=== PATIENT | male | born 1965 | race Caucasian/White ===

== ENCOUNTER 2018-09-18 12:37 | Emergency (ER) | payer BC ==
[2018-09-18 13:26] VITALS: BP 112/68
--- NOTE | 2018-09-18 13:40 | UC ---
General HPI - HPI Summary HPI Summary: last pm while walking, pt felt and heard a sudden "pop" in his L knee. it sounded like a bone cracked. he had immediate pain and now has swelling as well. - History of Current Complaint Chief Complaint: UCLowerExtremity Stated Complaint: LT KNEE INJURY Time Seen by Provider: 09/18/18 13:20 Hx Obtained From: Patient Onset/Duration: Sudden Onset Timing: Constant Pain Intensity: 9 Aggravating: walking - Allergy/Home Medications Allergies/Adverse Reactions: Allergies Allergy/AdvReac Type Severity Reaction Status Date / Time No Known Allergies Allergy Verified 09/18/18 13:24 Home Medications: Home Medications Ibuprofen TAB* [Advil TAB*] 800 mg PO Q6H PRN 09/18/18 [History Confirmed ] PMH/Surg Hx/FS Hx/Imm Hx Previously Healthy: Yes - Surgical History Surgical History: Yes Surgery Procedure, Year, and Place: L ankle surgery for "dying bone" - Family History Known Family History: Positive: Non-Contributory - Social History Occupation: Employed Full-time - [employer] Lives: With Family Alcohol Use: Daily Alcohol Amount: 2 beers Substance Use Type: None Smoking Status (MU): Heavy Every Day Tobacco Smoker Type: Cigarettes Amount Used/How Often: 1 PPD Review of Systems All Other Systems Reviewed And Are Negative: No Constitutional: Negative: Fever Skin: Negative: Rash Musculoskeletal: Positive: Edema - L knee. Negative: Calf Tenderness, Decreased ROM Physical Exam Triage Information Reviewed: Yes Appearance: Well-Appearing Vital Signs: Initial Vital Signs Temp 98.8 F 09/18/18 13:21 Pulse 82 09/18/18 13:21 Resp 17 09/18/18 13:21 BP 112/68 09/18/18 13:21 Pulse Ox 98 09/18/18 13:21 Vital Signs Reviewed: Yes Eyes: Positive: Conjunctiva Clear Respiratory: Positive: No respiratory distress Cardiovascular: Positive: RRR Musculoskeletal: Positive: Other: - LLE: non tender varicose veins. hip is non tender. knee is swollen and tender to medial joint line and posterior knee. no joint laxity. active rom intact but painful. calf, achilles, ankle and foot are non tender. foot has full s/v/m function. able to plantar and dorsiflex foot without difficulty and stands on toes without difficulty or pain. Neurological: Positive: Alert Psychological: Positive: Age Appropriate Behavior Skin Exam: Normal Diagnostics - Radiology No standard instances Radiology Interpretation Completed By: Radiologist - IMPRESSION: 1. FINDINGS SUGGESTIVE OF REMOTE FRACTURE OF THE MEDIAL PATELLA. 2. OSTEOARTHRITIS. 3. NO ACUTE OSSEOUS INJURY. IF SYMPTOMS PERSIST, RECOMMEND REPEAT IMAGING. Course/Dx - Differential Dx - Multi-Symptom Differential Diagnoses: Other - NO CONCERN FOR INFECTION. NO ACUTE FX ON XRAY. PT DECLINED CRUTCHES AND IMMOBILIZER THUS WILL TX WITH AN RON AND CANE PLUS ORTHO F/U TOMORROW. - Diagnoses Provider Diagnosis: Knee pain, acute, Swollen R knee Discharge - Sign-Out/Discharge Documenting (check all that apply): Patient Departure All imaging exams completed and their final reports reviewed: Yes - Discharge Plan Condition: Stable Disposition: HOME Patient Education Materials: Swollen Knee Joint (ED), Knee Pain (ED) Referrals: Scout Patel MD [Medical Doctor] - 1 Day Additional Instructions: RON DURING DAY, REMOVE AT BEDTIME. USE CANE UNTIL CLEARED. - Billing Disposition and Condition Condition: STABLE Disposition: Home
[2018-09-18] MEDS ORDERED: Ibuprofen ADULT LIQ* 600 MG/30 ML UDC PO ONE (13:41)
== END 2018-09-18 14:57 | disposition home or self-care (01) ==
LOC: UCCORT 12:37
DX: M17.12 Unilateral primary osteoarthritis, left knee (principal); M25.462 Effusion, left knee; F17.210 Nicotine dependence, cigarettes, uncomplicated
CPT/HCPCS: 99202; A9270-GY; G0463